=== PATIENT | female | born 1990 | race Caucasian/White ===

== ENCOUNTER 2020-11-12 13:12 | Emergency (ER) | payer MEDICAID, SELFPAY ==
[2020-11-12 13:19] VITALS: BP 137/79; PULSE 80; RESP 18; TEMP 36.6; O2SAT 100
--- NOTE | 2020-11-12 14:01 | W.ED.GENAD ---
Discharge Plan Disposition Patient Disposition: HOME Condition: Good Discharge Details Clinical Impression: Nausea vomiting and diarrhea Primary Care Provider: None,None ED Provider: Merle Stoner Home Meds and New Rx's Prescriptions: No Action ondansetron 4 mg tablet,disintegrating 4 mg PO Q6H PRN (Reason: nausea and vomiting) Qty: 10 RF: 0 Discharge Instructions Instructions: Ondansetron (By mouth), Acute Nausea and Vomiting (ED) Additional Instructions: Your labs and imaging are reassuring today. Care management will reach out to you to schedule follow-up appointment with a local primary care. You have also been referred to general surgery to discuss potentially needing colonoscopy. You may call tomorrow, number listed below. Please use the Zofran as prescribed to help if you develop any recurrence of your nausea or vomiting. If you develop fever/chills, increased pain, inability stay hydrated or other new/worsening symptoms please seek medical care. Referrals: Walker Freeman MD [MD CONSULTING PHYSICIAN] - Discharge Data Discharge Date/Time-TO BE ENTERED AT DEPARTURE: 11/12/20 19:50 Medical Decision Making <FEDERICO Bell - Last Filed: 11/13/20 01:09> Care transition myself and Dr. Antoine with imaging pending. Please note regarding initial presentation, exam and history. In brief, the patient is a pleasant 30-year-old presents today with chief complaint of nausea, vomiting and diarrhea. Patient has been seen at outside facility x2 for the same complaint. In the initially began with bloody stools. She was able to show Dr. Antoine images of her emesis. In both the stool and her emesis, patient is having normal colored, brown, output with streaks of blood. Primarily notes blood on her toilet paper. Patient did not have any abdominal pain. No fevers or chills. Labs were significant for a white count of 11.02. Otherwise, no significant abnormalities. FINDINGS: Lungs: There is minimal scarring/atelectasis within the lingular segment of the left upper lobe and medial segment of the right middle lobe. Liver: There is a 1.4 cm wedge-shaped hypodensity within the medial segment of the left hepatic lobe adjacent to the fissure for the falciform ligament, as seen on image 23, series 4, consistent with focal fatty infiltration. Gallbladder and bile ducts: The gallbladder is normal. There is no evidence of biliary ductal dilation. Pancreas: The pancreas is normal. Spleen: The spleen is normal. Adrenal glands: The adrenal glands are normal. Kidneys and ureters: There are few regions of renal cortical thinning of the left kidney consistent with scarring. No renal or ureteral stones are identified. There is no hydronephrosis or hydroureter. Stomach and bowel: Unremarkable. No obstruction. No mucosal thickening. Appendix: The appendix is well visualized and appears normal. Intraperitoneal space: Unremarkable. No free air. No significant fluid collection. Vasculature: Unremarkable. No abdominal aortic aneurysm. Lymph nodes: Unremarkable. No enlarged lymph nodes. Urinary bladder: The bladder is normal. Reproductive: There is a 1.0 x 1.7 cm rim enhancing right adnexal lesion, as seen on image 88, series 4, consistent with a corpus luteal cyst. 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 No acute fractures identified. Soft tissues: Unremarkable. IMPRESSION: 1. 1.0 x 1.7 cm rim enhancing right adnexal lesion consistent with a corpus luteal cyst. 2. No acute process within the abdomen or pelvis identified. Number she is having I discussed the findings with the patient. We did discuss the status noted. We also discussed the renal scarring. Patient will be prescribed Zofran to help any recurrent nausea episodes per. Patient did not have a primary care and I have asked her care management team to ensure follow-up in the next 2 weeks. Patient states that physicians at [facility] as well. Discussed potential for needing a colonoscopy. We will positive general surgery as well the buttock. Strict return precautions were discussed. All questions and concerns were addressed and she is in agreement this plan <Emily Antoine MD - Last Filed: 11/19/20 09:06> Celeste Valencia is a 30-year-old woman without reported history of major medical problems presenting to emergency department with several days of diarrhea, vomit, and intermittent upper abdominal pain, with small amounts of blood streaking in diarrhea/vomiting. On exam patient is well nontoxic-appearing. There is no abdominal tenderness palpation. Concern for gastroenteritis, colitis, other exam/history is not consistent with acute coronary syndrome, acute emergent intracranial process, acute aortic pathology, significant GI bleed. Plan for screening labs, will attempt to obtain records from [facility]. No records have been obtained from [facility]. Labs reviewed, nondiagnostic, patient not per nursing. Patient initially declined IV placement, discussed risks/benefits of repeat CT scan including further evaluation for acute emergent intra-abdominal process, risks of radiation. Patient consents to CT scan, agrees IV placement. Plan for IV fluid hydration, IV Zofran. Patient signed out to Merle Stoner at time of shift change with CT scan, reassessment pending. Medical Records Medical records reviewed: Yes I reviewed the patient's medical records. Lab Data Lab results reviewed: Yes I reviewed the patient's lab results. Labs: Laboratory Tests Range/Units 11/12/20 11/12/20 11/12/20 14:10 14:49 14:49 WBC (4.4-10.8) 10^3/uL 11.02 H RBC (3.93-5.22) 10^6/uL 4.68 Hgb (11.2-15.7) g/dL 14.1 Hct (36.0-46.0) % 42.3 MCV (80-95) fL 90.4 MCH (27.0-33.0) pg 30.1 MCHC (32.0-36.0) % 33.3 RDW (11.7-14.6) % 12.5 Plt Count (130-400) 10^3/uL 246 MPV (8.0-11.0) fL 10.8 Immature Gran % 0.3 Neutrophils % 60.3 Lymphocytes % 32.2 Monocytes % 3.4 Eosinophils % 3.4 Basophils % 0.4 Nucleated RBC % % 0 Absolute Neutrophils (1.2-6.7) 10^3/uL 6.65 Absolute Lymphocytes (1.2-3.4) 10^3/uL 3.55 H Absolute Monocytes (0.1-0.8) 10^3/uL 0.37 Absolute Eosinophils (0.0-0.7) 10^3/uL 0.37 Absolute Basophils (0.0-0.2) 10^3/uL 0.04 PT (9.3-11.0) sec INR (0.9-1.1) APTT (21.0-27.5) sec Sodium (136-145) mmol/L 141 Potassium (3.5-5.1) mmol/L 3.5 Chloride (98-107) mmol/L 104 Carbon Dioxide (21.0-32.0) mmol/L 26.2 Anion Gap (3-11) mmol/L 10.8 BUN (7-18) mg/dL 9 Creatinine (0.55-1.02) mg/dL 0.8 Estimated GFR/1.73 m2 (mL/min/1.73m2) >= 60.00 Glucose (74-106) mg/dL 75 Calcium (8.5-10.1) mg/dL 9.4 Total Bilirubin (0.2-1.0) mg/dL 0.8 AST (15-37) U/L 27 ALT (14-59) U/L 43 Alkaline Phosphatase (46-116) U/L 74 Total Protein (6.4-8.2) g/dL 7.5 Albumin (3.4-5.0) g/dL 4.1 Lipase (73-393) U/L 73 Urine Color (Yellow) Yellow Urine Clarity (Clear) Sl cloudy Urine pH (5-8) 6.5 Ur Specific Holcomb (1.005-1.025) 1.025 Urine Protein (Negative) mg/dL Negative Urine Ketones (Negative) mg/dL Trace H Urine Blood (Negative) Negative Urine Nitrite (Negative) Negative Urine Bilirubin (Negative) Negative Urine Urobilinogen (Up TO 0.2) EU/dL 0.2 Ur Leukocyte Esterase (Negative) Trace H Urine RBC (0-2) HPF 0-2 Urine WBC (0-5) HPF 5-10 Ur Epithelial Cells (Negative) HPF Many Urine Crystals (Negative) HPF Negative Urine Bacteria (Negative) HPF Few Urine Casts (Negative) LPF Negative Urine Mucus (Negative) Negative Ur Culture Indicated? No/sq. contamination Urine Glucose (Negative) mg/dL Negative Range/Units 11/12/20 14:49 WBC (4.4-10.8) 10^3/uL RBC (3.93-5.22) 10^6/uL Hgb (11.2-15.7) g/dL Hct (36.0-46.0) % MCV (80-95) fL MCH (27.0-33.0) pg MCHC (32.0-36.0) % RDW (11.7-14.6) % Plt Count (130-400) 10^3/uL MPV (8.0-11.0) fL Immature Gran % Neutrophils % Lymphocytes % Monocytes % Eosinophils % Basophils % Nucleated RBC % % Absolute Neutrophils (1.2-6.7) 10^3/uL Absolute Lymphocytes (1.2-3.4) 10^3/uL Absolute Monocytes (0.1-0.8) 10^3/uL Absolute Eosinophils (0.0-0.7) 10^3/uL Absolute Basophils (0.0-0.2) 10^3/uL PT (9.3-11.0) sec 10.5 INR (0.9-1.1) 1.0 APTT (21.0-27.5) sec 25.3 Sodium (136-145) mmol/L Potassium (3.5-5.1) mmol/L Chloride (98-107) mmol/L Carbon Dioxide (21.0-32.0) mmol/L Anion Gap (3-11) mmol/L BUN (7-18) mg/dL Creatinine (0.55-1.02) mg/dL Estimated GFR/1.73 m2 (mL/min/1.73m2) Glucose (74-106) mg/dL Calcium (8.5-10.1) mg/dL Total Bilirubin (0.2-1.0) mg/dL AST (15-37) U/L ALT (14-59) U/L Alkaline Phosphatase (46-116) U/L Total Protein (6.4-8.2) g/dL Albumin (3.4-5.0) g/dL Lipase (73-393) U/L Urine Color (Yellow) Urine Clarity (Clear) Urine pH (5-8) Ur Specific Holcomb (1.005-1.025) Urine Protein (Negative) mg/dL Urine Ketones (Negative) mg/dL Urine Blood (Negative) Urine Nitrite (Negative) Urine Bilirubin (Negative) Urine Urobilinogen (Up TO 0.2) EU/dL Ur Leukocyte Esterase (Negative) Urine RBC (0-2) HPF Urine WBC (0-5) HPF Ur Epithelial Cells (Negative) HPF Urine Crystals (Negative) HPF Urine Bacteria (Negative) HPF Urine Casts (Negative) LPF Urine Mucus (Negative) Ur Culture Indicated? Urine Glucose (Negative) mg/dL HPI <FEDERICO Bell - Last Filed: 11/13/20 01:09> General Date/Time Provider Initiated Documentation: 11/12/20 13:42. Related Data Home Medications Medication Instructions Recorded Confirmed ondansetron 4 mg disintegrating 4 mg PO Q6H PRN #10 tab 11/16/20 11/16/20 tablet Previous Rx's Medication Instructions Recorded ondansetron 4 mg disintegrating 4 mg PO Q6H PRN #10 tab 11/16/20 tablet Allergies Allergy/AdvReac Type Severity Reaction Status Date / Time No Known Allergies Allergy Unverified 11/15/20 14:40 <Emily Antoine MD - Last Filed: 11/19/20 09:06> General Mode of arrival: ambulatory. Limitations to Documentation: no limitations. Information obtained by: patient, RN notes reviewed and old records reviewed. HPI Narrative: Celeste Valencia is a 30-year-old woman without reported history of major medical problems presenting to emergency department with abdominal pain, vomiting, diarrhea. Patient reports that several days ago she began having intermittent abdominal pain with diarrhea and vomiting. Patient notes that she has seen streaking of blood mixed in with light brown stool, and has also noticed streaks of blood in her vomit. Patient reports that stool itself is not black, dark, or tarry, she reports that emesis is not dark or coffee-ground like. Patient reports that she was seen at [facility] for this 4 days ago, where she had labs and CT scan performed and was discharged home with plan for outpatient colonoscopy, was told she likely had an internal hemorrhoid that was bleeding. Patient reports that she represented to [facility] emergency department 2 days later for same symptoms but with persistent vomiting. Patient reports that she had repeat labs and was discharged to home. Patient states that she has had persistent vomiting since last emergency department visit, and is unable to hold down p.o. Patient reports that abdominal pain has been in her upper abdomen and intermittent over the past 2 days, not currently occurring. She states that she has seen small amount of blood on toilet paper when wiping, but has not noticed any blood mixed in with her stool or any dark/black/tarry stool over the past few days. She has seen small streaks of blood mixed in with emesis that is light brown in color. Patient does have a picture of her emesis on her phone which she showed to me, and shows small amount of blood mixed with light brown emesis. Appears to be less than 1 teaspoon of blood in photo. She denies fevers, cough, shortness of breath, any other pain, numbness, weakness, any other bleeding, rash. Patient reports that she has not been prescribed Zofran after either of her ED visits. She states that she has not taking medication for symptoms. General Stated Complaint: GI Bleed FABIAN: 3 <Emily Antoine MD - Last Filed: 11/19/20 09:06> Narrative: Constitutional: denies fevers Eyes: denies eye pain ENT: denies ear pain, dental pain, sore throat Cardiovascular: denies chest pain, edema Respiratory: denies SOB, cough GI: Reports abdominal pain, vomiting, diarrhea : denies flank pain MSK: denies back pain, neck pain, arthralgias, myalgias Skin: denies rash Neuro: denies headaches, numbness, weakness PFSH <FEDERICO Bell - Last Filed: 11/13/20 01:09> Social History Smoking/Tobacco Use Status: Former Tobacco Use Smoking risk assessment performed?: Yes Alcohol Intake: current Alcohol Intake frequency: a few times a week Alcohol type: beer Drug use: Daily Substance use type: marijuana Do you feel safe at home: Yes Do you feel safe in your relationship?: Yes <Emily Antoine MD - Last Filed: 11/19/20 09:06> Narrative Exam Narrative: Constitutional: well and [id number], pleasant, conversing normally HENT: head atraumatic/normocephalic/normal inspection, mucous membranes moist Eyes: conjunctiva normal, sclera normal, pupils 3mm b/l Neck: no stridor, normal ROM, trachea midline Resp: normal work of breathing, speaking in full sentences Cardio: normal rate, normal rhythm GI: abdomen soft, non-tender, non-distended Skin: warm, dry, normal color, no rash Neuro: alert, not altered, grossly non-focal, normal tone, normal ambulation Ext: no edema Psych: normal mood, normal affect, normal behavior <Emily Antoine MD - Last Filed: 11/19/20 09:06> Vital Signs Vital signs: Vital Signs Temperature 36.6 C 11/12/20 13:19 Pulse 80 11/12/20 13:19 Respiratory Rate 18 11/12/20 13:19 Blood Pressure 137/79 11/12/20 13:19 Pulse Oximetry 100 11/12/20 13:19 Temperature 36.6 C 11/12/20 13:19 Temperature Source Temporal Artery Scan 11/12/20 13:19 Pulse 80 11/12/20 13:19 Respiratory Rate 18 11/12/20 13:19 Respiratory Effort Non-Labored 11/12/20 13:25 Blood Pressure 137/79 11/12/20 13:19 Blood Pressure Position Sitting 11/12/20 13:19 Pulse Oximetry 100 11/12/20 13:19 Oxygen Delivery Method Room Air 11/12/20 13:19 Oxygen Flow Rate 0 11/12/20 13:19 Pain Level 3 11/12/20 13:25 Sign Out <FEDERICO Bell - Last Filed: 11/13/20 01:09> Sign Out Data: Sign Out Comment: Patient signed out to Merle Miller at time of shift change with CT abdomen/pelvis, reassessment, disposition pending Last updated by Emily Antoine MD at 11/12/20 16:25
[2020-11-12 14:38] LABS: Bilirubin Negative (Negative); Blood Negative (Negative); Clarity Sl Cloudy (Clear); Glucose Negative (Negative); Ketones Trace mg/dL (Negative); Leukocyte Esterase Trace (Negative); Nitrite Negative (Negative); Specific Gravity 1.025 (1.005-1.025); Urobilinogen 0.2 EU/dL (Up TO 0.2); pH 6.5 (5-8)
[2020-11-12 14:46] LABS: Bacteria Few HPF (Negative); C & S Indicated? No/Sq. Contamination; Casts Negative LPF (Negative); Crystals Negative HPF (Negative); Epithelial Cells Many HPF (Negative); Mucus Negative (Negative); RBC 0-2 HPF (0-2)
[2020-11-12 15:01] LABS: Abs Immature Grans 0.03 10^3/uL (0.0-0.06); Absolute Basophil Count 0.04 10^3/uL (0.0-0.2); Absolute Lymphocyte Count 3.55 10^3/uL (1.2-3.4); Basophils % 0.4; Eosinophils % 3.4; HCT 42.3 % (36.0-46.0); HGB 14.1 g/dL (11.2-15.7); Immature Grans % 0.3; Lymphocytes % 32.2; MCH 30.1 pg (27.0-33.0); MCHC 33.3 % (32.0-36.0); MCV 90.4 fL (80-95); MPV 10.8 fL (8.0-11.0); Monocytes % 3.4; Neutrophils % 60.3; Nucleated RBC 0 %; Platelet Count 246 10^3/uL (130-400); RBC 4.68 10^6/uL (3.93-5.22); RDW 12.5 % (11.7-14.6); RDW-SD 41.1 fL; WBC 11.02 10^3/uL (4.4-10.8)
[2020-11-12 15:04] LABS: Absolute Eosinophil Count 0.37 10^3/uL (0.0-0.7); Absolute Monocyte Count 0.37 10^3/uL (0.1-0.8); Absolute Neutrophil Count 6.65 10^3/uL (1.2-6.7)
[2020-11-12 15:22] LABS: ALT 43 U/L (14-59); AST 27 U/L (15-37); Albumin 4.1 g/dL (3.4-5.0); Alkaline Phosphatase 74 U/L (46-116); Anion Gap 10.8 mmol/L (3-11); BUN 9 mg/dL (7-18); Bilirubin, Total 0.8 mg/dL (0.2-1.0); CO2 26.2 mmol/L (21.0-32.0); CREATININE 0.8 mg/dL (0.55-1.02); Calcium 9.4 mg/dL (8.5-10.1); Chloride 104 mmol/L (98-107); Glucose 75 mg/dL (74-106); Lipase 73 U/L (73-393); Potassium 3.5 mmol/L (3.5-5.1); Sodium 141 mmol/L (136-145); Total Protein 7.5 g/dL (6.4-8.2)
--- NOTE | 2020-11-12 16:00 | DI.CT_ITS ---
EXAM: CT ABDOMEN PELVIS W CLINICAL HISTORY: lower abdominal pain TECHNIQUE: Imaging Protocol: Axial computed tomography images with coronal and sagittal reformatted images were created and reviewed CONTRAST MATERIAL: Intravenous: Omnipaque 350 Contrast volume:100 mL Oral: Yes COMPARISON: No exams were available for comparison FINDINGS: ABDOMEN: Lung Bases: Normal where visualized. Liver: Normal density. No measurable mass. Portal, Superior Mesenteric, and Splenic Veins: Unremarkable. Gallbladder and Biliary Tract: No radiodense calculus or dilation. Pancreas: Normal density, no abnormal calcifications or inflammatory process. Spleen: Normal. Adrenals: No masses seen. Kidneys: Normal size, contour and axis. No radiodense stones or obstructive uropathy. No masses seen. Abdominal Aorta: Abdominal portion non-dilated. Bowel: No obstruction or bowel wall thickening. Appendix is unremarkable. Peritoneal Cavity: No ascites, collection or mesenteric inflammatory response. No free air. Lymph Nodes: Within normal limits. Bones: Within normal limits for the patient's age. Soft Tissues: Unremarkable. PELVIS: Bladder: There is diffuse thickening of the wall of the urinary bladder. This may be due to underdis tention. Inflammatory infectious cystitis cannot be excluded. Please correlate clinically. Reproductive Organs: There is a 2.3 cm rim enhancing cyst on the right ovary likely reflecting a alexsander us luteal cyst. Lymph Nodes: Within normal limits. Bones: Within normal limits for the patient's age. IMPRESSION: 1. 2.3 cm right ovarian lesion consistent with a corpus luteal cyst. 2. No acute abdominal or pelvic process. RADIATION DOSE DELIVERED: 1,015.13mGy.cm Total DLP DATA REPOSITORY: All CT scans at this facility are submitted to the National Radiology Data Registry (NRDR) Dose Index Registry (DIR) with the [employer] (ACR). RADIATION OPTIMIZATION: All CT scans at this facility use at least one of these dose optimization te chniques: automated exposure control; mA and/or kV adjustment per patient size (includes targeted exa ms where dose is matched to clinical indication); or iterative reconstruction.
[2020-11-12] MEDS: Normal Saline 1,000 ML 1000 ML IV (16:29)
[2020-11-12] MEDS: Ondansetron 4 MG/2 ML VIAL IVP (16:30)
[2020-11-12] MEDS: Normal Saline Flush 10 ML SYR IVP ×2 (16:30→18:24)
[2020-11-12] MEDS: Breeza Beverage 473 ML BTL PO ×2 (16:39→16:40)
[2020-11-12] MEDS: Omnipaque 350 MG/ML 50 ML BTL PO (16:39)
[2020-11-12 17:44] LABS: PTT Activated 25.3 sec (21.0-27.5); Prothrombin Time 10.5 sec (9.3-11.0)
[2020-11-12] MEDS: Normal Saline - Diluent 50 ML VIAL IV (18:24)
[2020-11-12] MEDS: Omnipaque 350 MG/ML 100 ML BTL IJ (18:24)
[2020-11-12 18:54] VITALS: BP 117/66; PULSE 70; RESP 16; O2SAT 98
--- NOTE | 2020-11-12 19:05 | DI.VRAD_ITS ---
PROCEDURE INFORMATION: Exam: CT Abdomen And Pelvis With Contrast Exam date and time: 11/12/2020 4:09 PM Age: 30 years old Clinical indication: Localized; Patient HX: Lower abdominal pain TECHNIQUE: Imaging protocol: Computed tomography of the abdomen and pelvis with contrast. COMPARISON: No relevant prior studies available. FINDINGS: Lungs: There is minimal scarring/atelectasis within the lingular segment of the left upper lobe and medial segment of the right middle lobe. Liver: There is a 1.4 cm wedge-shaped hypodensity within the medial segment of the left hepatic lobe adjacent to the fissure for the falciform ligament, as seen on image 23, series 4, consistent with focal fatty infiltration. Gallbladder and bile ducts: The gallbladder is normal. There is no evidence of biliary ductal dilation. Pancreas: The pancreas is normal. Spleen: The spleen is normal. Adrenal glands: The adrenal glands are normal. Kidneys and ureters: There are few regions of renal cortical thinning of the left kidney consistent with scarring. No renal or ureteral stones are identified. There is no hydronephrosis or hydroureter. Stomach and bowel: Unremarkable. No obstruction. No mucosal thickening. Appendix: The appendix is well visualized and appears normal. Intraperitoneal space: Unremarkable. No free air. No significant fluid collection. Vasculature: Unremarkable. No abdominal aortic aneurysm. Lymph nodes: Unremarkable. No enlarged lymph nodes. Urinary bladder: The bladder is normal. Reproductive: There is a 1.0 x 1.7 cm rim enhancing right adnexal lesion, as seen on image 88, series 4, consistent with a corpus luteal cyst. 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 No acute fractures identified. Soft tissues: Unremarkable. IMPRESSION: 1. 1.0 x 1.7 cm rim enhancing right adnexal lesion consistent with a corpus luteal cyst. 2. No acute process within the abdomen or pelvis identified. Dictated and Authenticated by: Puma Romero MD. Ordering:JOSE Diaz MD
[2020-11-12] MEDS: Ondansetron O.D.T. 4 MG TABEF, 3 TABS/BTL PO (19:40)
--- NOTE | 2020-11-12 20:36 | NUR.NOTE ---
sent C M referral to establish a pcp for nausea , vomitting, and diareea and also sent general surgury a referral for rectal bleeding Luis EDNursing Note:
== END 2020-11-12 19:50 | disposition home or self-care (01) ==
PROVIDERS: Student in an Organized Health Care Education/Training Program; Emergency Provider Physician Assistant
DX: R11.2 Nausea with vomiting, unspecified (principal); R19.7 Diarrhea, unspecified
CPT/HCPCS: 36415; 80053; 81025; 83690; 96361; 96374; 99285; 74177; 81003; 81015; 85025; 85610; 85730; 99281; J2405; J3490; Q9967

== ENCOUNTER 2020-11-23 09:00 | Day surgery (SDC) | payer MEDICAID, SELFPAY ==
[2020-11-23 09:15] VITALS: BP 112/67; PULSE 72; RESP 18; TEMP 36.6; O2SAT 96
[2020-11-23] MEDS: Lactated Ringers 1,000 ML 80 ML IV (09:40)
--- NOTE | 2020-11-23 10:30 | BOWEL_PTH ---
PATIENT: Celeste Valencia LOC: [facility] U#:[id number] AGE/SX: 30/F ROOM: RE11/23/[address]: Walker Freeman MD : 1990 BED: DIS: 11/23/2020 SPEC #: [id number] RECD: 11/23/20 11:30 STATUS: BREE REQ #: [id number] [place]: 11/23/20 10:[address]: Walker Freeman DEPT: Surgical Specimen RECD BY: Jenny Hernandez ENTERED: 11/23/20 11:33 SP TYPE: Bowel OTHR DR: Sarah Calhoun, BRILLIANDEER LOOPER Tissues: 1 - BIOPSY BOWEL 2 - STOMACH BIOPSY 3 - BIOPSY BOWEL 4 - BIOPSY BOWEL 5 - BIOPSY BOWEL 6 - BIOPSY BOWEL 7 - BIOPSY BOWEL Procedures: GROSS AND MICRO LEVEL 4 Comments: [id number]
--- NOTE | 2020-11-23 10:56 | W.PM.DSUDISC ---
Discharge Plan Disposition Patient Disposition: HOME Condition: Good Discharge Details Attending Provider: Walker Freeman Primary Care Provider: Sarah Calhoun Home Meds and New Rx's Prescriptions: No Action ondansetron 4 mg tablet,disintegrating 4 mg PO Q6H PRN (Reason: nausea and vomiting) Qty: 10 RF: 0 Discharge Instructions Additional Instructions: Resume regular diet as tolerated. Your endoscopy showed gastritis. Colonoscopy was normal. Random biopsies were taken to look for microscopic colitis. Please take 1 week come back. You should use Prilosec OTC daily for the gastritis and avoid alcohol tobacco. Activity:: Activity as Tolerated Discharge Orders Discharge Orders: Discharge Order (Routine); Ordered 11/23/20 Ordered By: Walker Freeman DS: Diagnosis Discharge Diagnosis (1) Nausea vomiting and diarrhea: Status: Acute
--- NOTE | 2020-11-23 10:59 | W.COLOREPORT ---
Date of service: 11/23/20 Time of Service: 10:59 Colonoscopy Report Pre-op diagnosis general: Vomiting with blood-streaked and blood in stool with some diarrhea Post-op diagnosis procedure note: other (Mild gastritis) Procedure: Upper and lower GI endoscopy Surgeon: Walker Freeman Anesthesia proc note operative: GETA Pathology: other (Random biopsy second portion of the duodenum, antrum, random biopsies ileum right left sigmoid rectum) Complications: None Disposition: same day Prep: Miralax Findings: . Procedure Description: With the patient left lateral decubitus position and under propofol anesthesia the Olympus fiberoptic endoscope was introduced transorally and easily advanced down to the second portion of the duodenum. Second portion of the duodenum looked grossly normal. Random biopsies were done because of a history of diarrhea to rule out celiac. The duodenal bulb was normal. The antrum and prepyloric area were inspected. There was mild antral gastritis with a few shallow erosions. These were biopsied. C-turn was performed in the incisura was inspected and was normal. U-turn was performed no proximal gastric abnormalities were noted. The distal esophagus was normal without evidence of esophagitis proximal esophagus was likewise normal. Scope was then withdrawn A colonoscopy was then performed. The colon was easily traversed to the cecum were the appendix was noted. The ileocecal valve was visualized and entered. The terminal ileum was grossly normal. Random biopsies were done. Right colon left colon sigmoid colon and rectum were then inspected. No abnormalities were noted in the mucosa. Biopsies were done at all levels. A U-turn was performed no abnormalities were seen. Scope was withdrawn
[2020-11-23 11:40] VITALS: BP 97/62; PULSE 60; RESP 16; TEMP 36; O2SAT 100
== END 2020-11-23 12:15 | disposition home or self-care (01) ==
PROVIDERS: PCP Nurse Practitioner Family; Visit Provider Surgery
PROC: (CPT 45380; principal; 2020-11-23 10:15)
DX: K62.5 Hemorrhage of anus and rectum (principal); K29.70 Gastritis, unspecified, without bleeding; R11.2 Nausea with vomiting, unspecified; R19.7 Diarrhea, unspecified
CPT/HCPCS: 45380; 43239; 81025; 88305; J2001

== ENCOUNTER 2020-11-23 16:46 | Outpatient (REF) | payer MEDICAID, SELFPAY ==
[2020-11-23 13:25] LABS: C Diff PCR Negative (Negative)
[2020-11-24 11:19] LABS: Campylobacter PCR Negative (Negative); Salmonella PCR Negative (Negative); Shiga Toxin PCR Negative (Negative); Shigella/Enteroinvasive Ecoli Negative (Negative)
== END 2020-11-23 16:47 | disposition home or self-care (01) ==
LOC: LBN 16:46
PROVIDERS: PCP Nurse Practitioner Family; Visit Provider Physical Therapy Assistant
DX: R19.7 Diarrhea, unspecified (principal); R11.2 Nausea with vomiting, unspecified
CPT/HCPCS: 87493; 87505; 87177

== ENCOUNTER 2020-11-29 22:25 | Outpatient (REF) | payer MEDICAID, SELFPAY ==
[2020-11-29 16:32] LABS: Bilirubin Negative (Negative); Blood Negative (Negative); Clarity Cloudy (Clear); Glucose Negative (Negative); Ketones Trace mg/dL (Negative); Leukocyte Esterase Negative (Negative); Nitrite Negative (Negative); Specific Gravity >= 1.030 (1.005-1.025); Urobilinogen 0.2 EU/dL (Up TO 0.2)
== END 2020-11-29 22:26 | disposition home or self-care (01) ==
LOC: LBN 22:25
PROVIDERS: PCP Nurse Practitioner Family; Visit Provider Nurse Practitioner Family
DX: R11.2 Nausea with vomiting, unspecified (principal); R19.7 Diarrhea, unspecified; R82.998 Other abnormal findings in urine
CPT/HCPCS: 81003; 87086

== ENCOUNTER 2021-10-26 10:52 | Emergency (ER) | payer MEDICAID, SELFPAY ==
[2021-10-26 11:02] VITALS: BP 118/79; PULSE 72; RESP 16; TEMP 36.5; O2SAT 98
--- NOTE | 2021-10-26 11:30 | DI.RAD_ITS ---
Exam(s) XR KNEE RT 3V AP,LAT,ZULEYKA EXAM: XR KNEE RT 3V AP,LAT,ZULEYKA CLINICAL HISTORY: pain and swelling, stepped and felt instant pain. TECHNIQUE: 2D digital imaging was performed of the right knee. Three views obtained. AP, AP tunnel and lateral views were obtained. COMPARISON: No exams were available for comparison FINDINGS: BONES: No acute fracture is present. No bony destructive lesion is seen. JOINTS: The knee is normally aligned. No joint effusion is seen. SOFT TISSUE: Normal. IMPRESSION: Unremarkable radiographs of the right knee. DATA REPOSITORY: RADIATION DOSE DELIVERED:
[2021-10-26] MEDS: oxyCODONE 5 MG TAB PO (12:06)
--- NOTE | 2021-10-26 12:29 | DI.VRAD_ITS ---
PROCEDURE INFORMATION: Exam: XR Right Knee Exam date and time: 10/26/2021 11:46 AM Age: 31 years old Clinical indication: Injury or trauma; Other: Pain and swelling, stepped and felt instant pain; Sprain or strain; Patella or knee; Right TECHNIQUE: Imaging protocol: XR Right knee. Views: 3 views. COMPARISON: No relevant prior studies available. FINDINGS: Bones/joints: There is no evidence of acute fracture.There is no evidence of malalignment or dislocation. Soft tissues: Normal. IMPRESSION: There is no evidence of acute fracture.There is no evidence of malalignment or dislocation. Dictated and Authenticated by: Lucia Ho MD. Ordering:TALON Sheikh MD
--- NOTE | 2021-10-26 12:52 | ED.GENADUL_ITS ---
Discharge Plan Disposition Patient Disposition: HOME Condition: Good Discharge Details Clinical Impression: Patellar tendon strain Primary Care Provider: Unknown,Unknown ED Provider: Kori Pacheco Home Meds and New Rx's Prescriptions: New diclofenac sodium [Voltaren Arthritis Pain] 1 % gel 4 g topical QID Qty: 100 RF: 0 oxycodone 5 mg capsule 5 mg PO BID PRNQty: 3 RF: 0 Continued pantoprazole [Protonix] 20 mg tablet,delayed release (DR/EC) 20 mg PO DAILY Qty: 90 RF: 0 Discharge Instructions Instructions: Swollen Knee Joint (ED) Additional Instructions: wear your brace during day no more than 1000 mgbofv tylenol every 6 hours voltaren to knee ice follow-up with orthopedics return with new or worsening complaints Referrals: Darryl Wallace MD [ [facility] STAFF PHYSICIAN] - Discharge Data Discharge Date/Time-TO BE ENTERED AT DEPARTURE: 10/26/21 13:17 Medical Decision Making Patient with x-ray does not show acute abnormality Placed in a hinged splint, orthopedic referral, concern for patellar dislocation with reduction Ambulatory with slow steady gait Given several doses of oxycodone with risk for addiction discussed, Voltaren gel Medical Records Medical records reviewed: Yes I reviewed the patient's medical records. Lab Data Lab results reviewed: Yes I reviewed the patient's lab results. HPI General Mode of arrival: ambulatory . Date/Time Provider Initiated Documentation: 10/26/21 11:44 . Limitations to Documentation: no limitations . Information obtained by: patient . HPI Narrative: This 31-year-old female presents with right knee pain. Patient states she stepped back 2 days ago today while cooking and felt her knee dislocate and reduce. She denies any history of similar symptoms in the past. States the pain is exacerbated with flexion and extension of her knee. Denies any additional injuries. Denies any chance of . Denies any paresthesias. Related Data Home Medications Medication Instructions Recorded Confirmed pantoprazole 20 mg tablet,delayed 20 mg PO DAILY #90 tab 11/29/20 10/26/21 release diclofenac sodium [Voltaren 4 g TOPICAL QID #100 g 10/26/21 Arthritis Pain] oxycodone 5 mg PO BID PRN #3 cap 10/26/21 Previous Rx's Medication Instructions Recorded pantoprazole 20 mg tablet,delayed 20 mg PO DAILY #90 tab 11/29/20 release diclofenac sodium [Voltaren 4 g TOPICAL QID #100 g 10/26/21 Arthritis Pain] oxycodone 5 mg PO BID PRN #3 cap 10/26/21 Allergies Allergy/AdvReac Type Severity Reaction Status Date / Time borax Allergy Intermediate Hives Uncoded 10/26/21 11:10 General Stated Complaint: Orthopedic FABIAN: 4 Review of Systems Narrative: Review of systems obtained x3 and negative aside from indication in [facility] PFSH All Active Problems (Updated 10/26/21 @ 12:58 by FEDERICO Fournier) Patellar tendon strain (Acute) Normal colonoscopy (Acute) Rectal pain (Acute) Medical History (Updated 10/26/21 @ 12:58 by FEDERICO Fournier) PUD (peptic ulcer disease) Surgical History History of colonoscopy (~11/23/20) History of esophagogastroduodenoscopy (EGD) (~11/23/20) History of tubal ligation Social History Smoking/Tobacco Use Status: Current every day Tobacco Type: cigarettes Smoking risk assessment performed?: Yes Alcohol Intake: current Alcohol Intake frequency: a few times a week Alcohol type: beer Drug use: Occasionally Substance use type: marijuana Do you feel safe at home: Yes Do you feel safe in your relationship?: Yes Exam Const General: cooperative, comfortable and no acute distress Extrem Other: Right knee with tenderness over lying the patellar tendon with swelling, no erythema, no evidence of bursitis, no popliteal tenderness, neurovascularly intact, no right hip tenderness, no right calf tenderness, no ankle tenderness, is able to flex and extend her knee with discomfort but strength intact, no instability noted Course Vital Signs Vital signs: Vital Signs Temperature 36.5 C 10/26/21 11:02 Pulse 72 10/26/21 11:02 Respiratory Rate 16 10/26/21 11:02 Blood Pressure 118/79 10/26/21 11:02 Pulse Oximetry 98 10/26/21 11:02 Temperature 36.5 C 10/26/21 11:02 Temperature Source Oral 10/26/21 11:02 Pulse 72 10/26/21 11:02 Respiratory Rate 16 10/26/21 11:02 Respiratory Effort Non-Labored 10/26/21 11:09 Blood Pressure 118/79 10/26/21 11:02 Blood Pressure Position Supine 10/26/21 11:02 Pulse Oximetry 98 10/26/21 11:02 Oxygen Delivery Method Room Air 10/26/21 11:02 Oxygen Flow Rate 0 10/26/21 11:02 Pain Level 7 10/26/21 12:06 PAWSS Have you Been Recently Intoxicated or Drunk Within the Last 30 days?: No Have you Ever Experienced Previous Episodes of Alcohol Withdrawal?: No Have you ever Experienced Withdrawal Seizures?: No Have you ever Experienced Delirium Tremens(DT)s?: No Have you ever undergone Alcohol Rehabilitation Treatment (i.e, inpt ot outpatient treatment programs)?: No Have you ever Experienced Blackouts?: No Have you ever Combined Alcohol with other Downers within the last 90 days?: No Have you ever Combined Alcohol with any other Substance of Abuse during the last 90 days?: No Positive Blood Alcohol level on Presentation? [PCS.BAL]: No Evidence of Increased Autonomic Activity (i.e. HR>120, tremor, sweating, agitation, nausea)?: No Result: 0
== END 2021-10-26 13:17 | disposition home or self-care (01) ==
PROVIDERS: Emergency Provider Physician Assistant
DX: S76.111A Strain of right quadriceps muscle, fascia and tendon, initial encounter (principal); X50.1XXA Overexertion from prolonged static or awkward postures, initial encounter
CPT/HCPCS: 29505; 73562; 99283

== ENCOUNTER 2021-11-06 00:50 | Outpatient (CLI) | payer MEDICAID, SELFPAY ==
--- NOTE | 2021-11-06 07:00 | DI.MRI_ITS ---
Exam(s) MR LOWER JOINT RT WO EXAM: MR LOWER JOINT RT WO CLINICAL HISTORY: RT KNEE PAIN, PATELLAR TENDON STRAIN,S86.819A,M25.561. TECHNIQUE: Multiplanar multisequence MRI was performed. COMPARISON: CR,XR XR KNEE RT 3V AP,LAT,ZULEYKA from 10/26/2021 FINDINGS: BONES: There is no fracture. Minimal bone contusions medial aspect of medial femoral condyle and pos terior aspect of both tibial plateaus.. JOINTS: Small focal linear defect in the medial patellar facet cartilage extending down to bone. No abnormal signal in the underlying bone. Femoral and tibial articular cartilage is unremarkable. A sm all joint effusion is present. TENDONS: Extensor mechanism: Unremarkable. Medial retinaculum: Unremarkable. Lateral retinaculum: Unremarkable. Popliteus: Unremarkable. MUSCLES: Unremarkable. MENISCI: The medial meniscus is unremarkable. The lateral meniscus is unremarkable. SOFT TISSUES: Unremarkable. LIGAMENTS: Anterior Cruciate: Disrupted femoral attachment. Posterior Cruciate: Unremarkable. Medial Collateral:Some edema near the femoral attachment but no visible focal tear. Lateral Collateral: Unremarkable. OTHER: Tiny Song's cyst. IMPRESSION: Disruption of the anterior cruciate ligament. Question of sprain near the femoral attachment of the medial collateral ligament. No meniscal tear. Patellar tendon appears normal. Linear cartilage defect medial patellar facet. DATA REPOSITORY:
== END 2021-11-06 01:10 ==
PROVIDERS: Visit Provider Student in an Organized Health Care Education/Training Program
DX: M25.561 Pain in right knee (principal); S86.811A Strain of other muscle(s) and tendon(s) at lower leg level, right leg, initial encounter; M25.461 Effusion, right knee; S83.511A Sprain of anterior cruciate ligament of right knee, initial encounter; M71.21 Synovial cyst of popliteal space [Baker], right knee; X58.XXXA Exposure to other specified factors, initial encounter
CPT/HCPCS: 73721

== ENCOUNTER 2021-12-17 01:16 | Outpatient (CLI) | payer MEDICAID, SELFPAY ==
[2021-12-17 11:55] LABS: Source Nasal/Nares
[2021-12-17 17:13] LABS: COVID-19 PCR Negative (Negative)
== END 2021-12-17 01:17 | disposition home or self-care (01) ==
LOC: LBO 01:17
PROVIDERS: PCP Family Medicine; Visit Provider Student in an Organized Health Care Education/Training Program
DX: Z20.822 Contact with and (suspected) exposure to COVID-19 (principal); Z01.818 Encounter for other preprocedural examination
CPT/HCPCS: 87635

== ENCOUNTER 2021-12-19 06:08 | Day surgery (SDC) | payer MEDICAID, SELFPAY ==
[2021-12-19] VITALS (10 sets, daily range): BP systolic 90–107; BP diastolic 44–73; PULSE 52–78; RESP 11–24; TEMP 36–36.5; O2SAT 96–100; BMI 34.7
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
[2021-12-19] MEDS: Lactated Ringers 1,000 ML 100 ML IV (07:20)
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
[2021-12-19] MEDS: ceFAZolin 2 GM/50 ML BAG IVPB (07:39)
--- NOTE | 2021-12-19 08:29 | W.ANESNERVE ---
Nerve Block Single Injection Procedure Date and Time Date Performed: 12/19/21 Procedure Start: 07:23 Location Where Procedure Performed Procedure Location: Day Surgery Unit Reason Performed: Postoperative Analgesia Requesting Provider: Darryl Wallace Timeout Performed Timeout Performed: Yes Monitoring Used ECG, Blood Pressure, SpO2 and See EMR for corresponding vital signs Sterility Sterility: Hand Hygiene, Surgical Cap, Surgical Mask and Sterile Gloves Sedation Given During Procedure Sedation Given (Indicate Dose Given): Versed IV Dose:: 2 mg and MKO Melt PO Dose:: 1 tab Patient Mental Status Patient Mental Status: Sedate with meaningful communication Nerve Block 1st Nerve Block: Laterality: Right Block Type: Femoral Needle / Catheter Used: 100mm SonoPlex II Local Anesthetic Bolus (Indicate Dose Given): Lidocaine used for local infiltration of skin, Injected in 3-5ml increments after negative blood aspiration, Bupivacaine 0.5% Dose:: 10 ml and Exparel Dose:: 10 ml Additives (Indicate Dose Given): None Ultrasound: Sterile probe cover and gel used Ultrasound Image Saved?: Yes Nerve Stimulator: Not Used Paresthesia: None Procedure Tolerated: No Complications Procedure Outcome: Successful Performed By: Ravi Toscano
[2021-12-19] MEDS: Bupivacaine 0.25% Pres-Free 30 ML VIAL (08:39)
[2021-12-19] MEDS: EPINEPHrine 30 MG/30 ML VIAL (09:47)
[2021-12-19] MEDS: fentaNYL 100 MCG/2 ML VIAL IVP ×2 (10:30→10:40)
[2021-12-19] MEDS: oxyCODONE 5 MG TAB PO (11:05)
--- NOTE | 2021-12-19 12:11 | PDOC.DSDIS_ITS ---
Discharge Plan Disposition Patient Disposition: HOME Condition: Stable Discharge Details Reason For Visit: Right knee surgery Attending Provider: Darryl Wallace Primary Care Provider: Chitra Rhodes Home Meds and New Rx's Prescriptions: New aspirin 81 mg tablet,delayed release (DR/EC) 81 mg PO DAILY 14 Days Qty: 14 0RF naproxen 250 mg tablet 250 - 500 mg PO BID PRNQty: 40 0RF Rx Instructions: take with a meal oxycodone 5 mg tablet 5 - 10 mg PO Q4H MDD 30 mg PRN (Reason: moderate to severe pain) Qty: 18 0RF Continued fluoxetine 20 mg capsule 20 mg PO DAILY Qty: 30 1RF Discontinued diclofenac sodium [Voltaren Arthritis Pain] 1 % gel 4 g topical QID Qty: 100 0RF Rx Instructions: apply to single knee, ankle, foot; for foot includes sole/toes/top of foot Discharge Instructions Additional Instructions: Surgery: Right knee arthroscopy with quadriceps allograft ACL reconstruction Activity: Weightbearing as tolerated. Advance range of motion as comfort allows. No knee brace or crutches needed as soon as comfortable. Restore full extension as soon as possible. Recommend avoiding sports, pivoting, and squatting for 6-9 months. A physical therapy prescription will be sent electronically to start in 2 to 3 weeks. Prescriptions: Aspirin 81 mg take 1 daily to prevent a blood clot for 14 days Naproxen 250 mg take 1-2 every 12 hours with a meal as needed for moderate pain Oxycodone 5 mg take 1-2 every 4-6 hours as needed for severe pain You may use [id number] Tylenol (acetaminophen) as needed for mild pain. These pain medications may be taken all at once or in different combinations as needed. Also, recommend Colace (docusate) as a stool softener as surgery and pain medicine cause constipation. Dressings: Leave dressing in place for 5 days. May then remove and leave open to air or cover incisions with Band-Aids. May shower after 7 days. Follow-up: 10-[address] Wallace Let us know right away if you develop any redness, drainage, fevers, chest pain, or trouble breathing. Do not drink alcohol or drive for at least 24 hours after anesthesia. Please call the office during business hours with any questions or concerns. Referrals: Darryl Wallace MD [ [facility] STAFF PHYSICIAN] - Discharge Orders Discharge Orders: Discharge Order (Routine); Ordered 12/19/21 Ordered By: Darryl Wallace DS: Diagnosis Discharge Diagnosis (1) Right ACL tear: Status: Acute
--- NOTE | 2021-12-19 13:33 | W.ANESPOSTOP ---
Postoperative Evaluation Date, Time and Location Date Performed: 12/19/21 Time Performed: 13:33 Patient Location: Day Surgery Unit Vital Signs Most Recent Imported Vital Signs: Most Recent Vital Signs Temp Pulse Resp BP Pulse Ox 36.5 C 67 16 105/57 L 99 12/19/21 11:50 12/19/21 11:50 12/19/21 11:50 12/19/21 11:50 12/19/21 11:50 Pain Score Most Recent Pain Score: Most Recent Pain Score Pain Level 7 12/19/21 11:50 Assessment Mental Status: Awake (Alert & Oriented to Patient Baseline) Airway and Respiratory Function: Patent airway with normal (patient baseline) respiratory exam Cardiovascular Function: Hemodynamically Stable Hydration Status: Adequately Hydrated Nausea & Vomiting: No Nausea or Vomiting Pain: Pain is tolerable per patient (Per Nursing) Peripheral Nerve Block: Regional nerve block not resolved at time of post operative discharge Postoperative Comments:: Patient discharged without anesthesia being allowed to see the patient. Per nursing patient was doing fine and really wanted to go.
--- NOTE | 2021-12-23 11:15 | PDOC.ANES ---
Date of service: 12/23/21 Time of Service: 11:15 Anesthesia Note Report Anesthesia Note: Called Celeste to discuss the top of her leg being numb. She is POD 4 after ACL repair with a femoral nerve block (10 mL 0.5% and 10 mL of Exparel). Over the phone it seems like the inside of her thigh is numb, this doesn't extend below the knee, it does not seem to be on top of her knee or on top of her thigh. She states that she hasn't been able to get up as much as she would like due to the numbness. However, she states that she has full motor control of her quadriceps and denies weakness in the area of the numbness. We discussed the nerve block that she had along with temporary vs permanent nerve injury. Since we are so early in her post op course we discussed that it is hard to say right now if this is a true nerve injury vs just a nerve block that has not yet fully worn off (which I stated is likely situation). We discussed that sometimes they just last longer than we anticipate. We will touch base with her later this week to see how she is doing. I encouraged her to reach out if she has any further questions or concerns.
--- NOTE | 2021-12-27 08:15 | PDOC.ANES ---
Anesthesia Note Report Anesthesia Note: Called Celeste this morning to discuss her femoral nerve block. Patient reports that the block completely resolved yesterday. She has full return of motor sensory. She does report having some problems mobilizing on the knee due to discomfort. I did refer her to her postop instructions. Patient denied further anesthesia related questions and I referred her to further call back if any questions.
== END 2021-12-19 13:05 | disposition home or self-care (01) ==
PROVIDERS: PCP Family Medicine; Visit Provider Student in an Organized Health Care Education/Training Program
PROC: (CPT 29870; principal; 2021-12-19 07:30)
DX: S83.511A Sprain of anterior cruciate ligament of right knee, initial encounter (principal); F32.9 Major depressive disorder, single episode, unspecified; F17.210 Nicotine dependence, cigarettes, uncomplicated; X58.XXXA Exposure to other specified factors, initial encounter
CPT/HCPCS: 29888; 76942; J0131; J0690; J1100; J1885; J2001; J2250; J2270; J2405; J2704; J3010

== ENCOUNTER 2022-01-08 00:39 | Outpatient (CLI) | payer MEDICAID, SELFPAY ==
--- NOTE | 2022-01-08 07:45 | DI.MRI_ITS ---
Exam(s) MR BRAIN WO/W EXAM: MR BRAIN WO/W CLINICAL HISTORY: h/o skull fx, head injury 05/2021, cog impairmENT,R41.3,Z87.81 TECHNIQUE: Multiplanar multisequence MRI of the brain was performed. Both noninfused and contrast i nfused sequences were performed. IV Contrast injected was 17 cc Dotarem. COMPARISON: No exams were available for comparison FINDINGS: CEREBRAL PARENCHYMA: No evidence of intracranial hemorrhage, mass effect nor shift of midline structu re. No extraaxial fluid collections. Ventricles are not enlarged nor shifted. There is no significant focal signal abnormality in the cerebellar hemispheres nor within the armond, m idbrain, and thalami. There is no abnormal signal abnormality in the periventricular white matter. No evidence of demyelin ating disease in the white matter. No evidence of shear stress injury signal DWI: No evidence restricted diffusion. SWI: No evidence of microhemorrhages in the brain. No evidence of cerebellar tonsillar There are no ring enhancing lesions in the brain. There is no abnormal meningeal enhancement. PITUITARY GLAND: No mass nor parasellar abnormality. No obvious abnormality in the cavernous sinuses. FLOW VOIDS: The expected flow void are noted. No evidence of obvious aneurysm nor obvious vascular ma lformation. PARANASAL SINUSES: There are 2 post inflammatory retention cyst in the floor the left maxillary sinus . No associated fluid levels therein. ORBITS: No obvious abnormal findings. IMPRESSION: 1. No significant intracranial findings on this MRI scan of the brain. 2. No abnormal enhancing intracranial finding. 3. No evidence of microhemorrhages, ischemic sequelae nor sure stress injury and no demyelination pl aques evident. DATA REPOSITORY:
[2022-01-08] MEDS: Normal Saline Flush 10 ML SYR IVP (13:41)
[2022-01-08] MEDS: Gadoterate meglumine 20 ML VIAL 17 ML IVP (13:41)
== END 2022-01-08 00:59 ==
PROVIDERS: PCP Family Medicine; Visit Provider Family Medicine
DX: R41.3 Other amnesia (principal); Z87.81 Personal history of (healed) traumatic fracture
CPT/HCPCS: 70553